=== PATIENT | male | born 1980 | race Caucasian/White ===

== ENCOUNTER 2023-07-05 15:04 | Emergency (ER) | payer BC ==
[~2023-07-05] VITALS: Ht 175.3 cm; Wt 70.8 kg
[2023-07-05 15:05] VITALS: BP_SYST 120; PULSE 53; RESP 19; TEMP 98.2; O2SAT 97
[2023-07-05 16:46] LABS: BASOPHILS % (AUTO) 0.3 % (0.0-2.0); EOSINOPHILS # (AUTO) 0.4 K/uL (0.0-0.4); EOSINOPHILS % (AUTO) 4.4 % (0.0-4.0); HEMATOCRIT 37.9 % (36-54); HEMOGLOBIN 12.5 g/dL (14.0-18.0); LYMPHOCYTES % (AUTO) 36.1 % (20.5-51.5); MEAN CORPUSCULAR HEMOGLOBIN 28 pg (27-31); MEAN CORPUSCULAR HGB CONC 33 % (32-36); MEAN CORPUSCULAR VOLUME 86 fL (79.0-98.0); MONOCYTES # (AUTO) 0.6 K/uL (0.0-1.0); MONOCYTES % (AUTO) 7.3 % (1.7-9.3); NEUTROPHILS # (AUTO) 4.3 K/uL (1.8-7.7); NEUTROPHILS % (AUTO) 51.9 % (40.0-70.0); PLATELET COUNT (AUTO) 252 K/uL (130-430); RED CELL DISTRIBUTION WIDTH 13.3 % (9.0-15.0); WHITE BLOOD COUNT (AUTO) 8.2 K/uL (4.8-10.8)
[2023-07-05 17:14] VITALS: BP_SYST 106; PULSE 48; RESP 9; O2SAT 98
[2023-07-05] MEDS ORDERED: HYDR30CR79 TP (17:18)
== END 2023-07-05 17:17 | disposition home or self-care (01) ==
LOC: SED 15:04
DX: K60.2 Anal fissure, unspecified (principal); K59.00 Constipation, unspecified; K92.1 Melena; Z79.899 Other long term (current) drug therapy
CPT/HCPCS: 36415; 85025; 99283